=== PATIENT | male | born 2000 | race Caucasian/White ===

== ENCOUNTER 2025-07-29 07:59 | Emergency (ER) | payer BC ==
--- OUTSIDE RECORDS SUMMARY | 2025-07-29 08:04 | XMS REPORT | Continuity of Care Document ---
Author Name Unknown Address [address] [facility] [address] [place] [address] [facility] [place] Address [address] [facility] [address] [place] [address] Care Team Providers Care Churn Operator Margarine Name Role Phone PCP, PATIENT DOES NOT HAVE A Primary Care Physic rajendra Unavailable LUNA OLSEN Attending Clinician Unavailable Melchor Brito NP Attending Clinician [phone] SYLVIA BURTON Attending Clinician Unavailable RADIOLOGY Attending Clinician Unavailable Radiology Attending Clinician Unavailable MELCHOR BRITO Admitting Clinician Unavailable Payers Payer Name Policy Type Policy Number Effective Date Expirati on Date Source [facility] AETNA [facility] PIPELINE 9 [id number] 2025 00:00:00 Allergies, Adverse Reactions, Alerts Allergy Name Allergy Type Status Severity Reaction(s) Onset Date Inactive Date Treating Clinician Comments Source NO KNOWN ALLERGIE S Drug Class Active [facility] Social History Social Habit Start Date Stop Date Quantity Comments Source Sexual orientation U [facility] Sex assigned at 2001 00:00:00 2000 00:00:00 [facility] Smoking Status Start Date Stop Date Source Tobacco smoking consumption unknown [facility] Medications Ordered Medication Name Filled Medication Name Start Date Stop Date Current Medication? Ordering Clinician Indication Dosage Frequency Signature (SIG) Comments Components Source promethazin e-DM 6.25 mg-15 mg/5 mL oral syrup 5- 00:00: 00 Yes 5mg/5 mL Damaso Stephen Shane phentermine 15 mg capsule 2-15 00:00: 00 Yes 1mg Damaso Stephen Shane gabapentin 100 mg capsule 2023-10 00:00: 00 Yes 1mg Damaso F Shane Vital Signs Vital Name Observation Time Observation Value Comments S ource BP Systolic 2025-02-15 16:12:00 144 mm[Hg] Step hen F Shane BP Diastolic 2025-02-15 16:12:00 97 mm[Hg] Nicola phen F Shane Weight Measured 2025-02-15 16:12:00 194.00 pounds Damaso F Shane Height Measured 2025-02-15 16:12:00 67.80 inches Damaso F Shane Body Temperature 2025-02-15 16:12:00 99.50 degrees Damaso F Shane Heart Rate 2025-02-15 16:12:00 103.00 /min Step hen F Shane Respiratory Rate 2025-02-15 16:12:00 18.00 /min Damaso F Shane BP Diastolic 2024-11-29 10:03:00 83 mm[Hg] Nicola phen F Shane Weight Measured 2024-11-29 10:03:00 203.60 pounds Damaso F Shane Height Measured 2024-11-29 10:03:00 67.80 inches Damaso F Shane Body Temperature 2024-11-29 10:03:00 97.80 degrees Damaso F Shane Heart Rate 2024-11-29 10:03:00 77.00 /min Magda en F Shane Respiratory Rate 2024-11-29 10:03:00 18.00 /min Damaso F Shane BP Systolic 2024-11-29 10:03:00 152 mm[Hg] Step hen F Shane BP Systolic 2024-09-11 09:41:00 137 mm[Hg] Step hen F Shane BP Diastolic 2024-09-11 09:41:00 93 mm[Hg] Nicola phen F Shane Weight Measured 2024-09-11 09:41:00 205.20 pounds Damaso F Shane Height Measured 2024-09-11 09:41:00 67.80 inches Damaso F Shane Body Temperature 2024-09-11 09:41:00 97.90 degrees Damaso F Shane Heart Rate 2024-09-11 09:41:00 95.00 /min Magda en F Shane Respiratory Rate 2024-09-11 09:41:00 17.00 /min Damaso F Shane BP Systolic 2024-08-29 11:09:00 Step hen F Shane BP Diastolic 2024-08-29 11:09:00 Nicola phen F Shane Weight Measured 2024-08-29 11:09:00 Damaso F Shane Height Measured 2024-08-29 11:09:00 Damaso F Shane Body Temperature 2024-08-29 11:09:00 Damaso F Shane Heart Rate 2024-08-29 11:09:00 Magda en F Shane Respiratory Rate 2024-08-29 11:09:00 Damaso F Shane Respiratory Rate 2024-07-27 13:20:00 16.00 /min Damaso F Shane BP Systolic 2024-07-27 13:20:00 139 mm[Hg] Step hen F Shane BP Diastolic 2024-07-27 13:20:00 78 mm[Hg] Nicola phen F Shane Weight Measured 2024-07-27 13:20:00 206.40 pounds Damaso F Shane Height Measured 2024-07-27 13:20:00 67.80 inches Damaso F Shane Body Temperature 2024-07-27 13:20:00 98.00 degrees Damaso F Shane Heart Rate 2024-07-27 13:20:00 97.00 /min Magda en F Shane Procedures Procedure Date / Time Performed Performing Clinicia n Source XR CERVICAL SPINE 3 VW 2024-09-13 16:02:49 Melchor Brito [facility] Encounters Start Date/Time End Date/Time Encounter Type Admission Type Attending [facility] Care Department Encounter ID Source 2025-06-04 07:00:00 2025-06-04 07:00:00 Outpatient VIVIANA CABRALES [id number] [facility] 2025-05-28 00:00:00 2025-05-28 00:00:00 Outpatient LUNA OLSEN [id number] [facility] 2025-05-23 00:00:00 2025-05-23 00:00:00 Outpatient VIVIANA CABRALES [id number] [facility] 2025-05-23 00:00:00 2025-05-23 00:00:00 Outpatient VIVIANA CABRALES [id number] [facility] 2025-05-23 00:00:00 2025-05-23 00:00:00 Outpatient VIVIANA CABRALES [id number] [facility] 2025-05-23 00:00:00 2025-05-23 00:00:00 Outpatient VIVIANA CABRALES [id number] [facility] 2025-02-15 15:56:15 2025-02-15 15:56:15 Outpatient SFA [id number] [id number] Damaso Lynn 2025-02-15 00:00:00 2025-02-15 00:00:00 Outpatient Visit SFA [id number] Damaso Lynn 2024-11-29 10:04:20 2024-11-29 10:04:20 Outpatient SFA [facility] [id number] Damaso Lynn 2024-11-29 00:00:00 2024-11-29 00:00:00 Outpatient Visit SFA [id number] Damaso Lynn 2024-10-12 00:00:00 2024-10-12 09:46:14 Letter (Out) Melchor Brito [facility] [id number] [facility] 2024-10-02 08:30:00 2024-10-02 08:30:00 Outpatient R SYLVIA BURTON [facility] [id number] [facility] 2024-09-13 09:33:05 2024-09-13 23:59:00 Outpatient R RADIOLOGY [facility] [id number] [facility] 2024-09-13 09:30:00 2024-09-13 23:59:00 Hospital Encounter Radiology Radiology [facility] [id number] [facility] 2024-09-11 09:31:07 2024-09-11 09:31:07 Outpatient SFA SFA [id number] Damaso Lynn 2024-09-11 00:00:00 2024-09-11 00:00:00 Outpatient Visit [facility] [id number] Damaso Lynn 2024-08-29 11:08:56 2024-08-29 11:08:56 Outpatient [facility] [id number] Damaso Lynn 2024-08-29 00:00:00 2024-08-29 00:00:00 Outpatient Visit [facility] [id number] Damaso Lynn 2024-07-27 13:19:38 2024-07-27 13:19:38 Outpatient [facility] [id number] Damaso Lynn 2024-07-27 00:00:00 2024-07-27 00:00:00 Outpatient Visit [facility] [id number] Damaso Lynn Results Test Description Test Time Test Comments Results Result Co mments Source COMPREHENSIVE METABOLIC [id number] 04:56:27* Test Item Value Reference Range Interpretation Comme nts GLUCOSE (test code = 2217) 87 MG/DL 70-99 BUN (test code = 2208) 11 MG/DL 6-20 CREATININE (test code = 2214) 0.98 MG/DL 0.80-1.40 eGFR (2020 CKD-EPI) (test code = 00595) 111 ML/MIN/1.73 >60 CALC BUN/CREAT (test code = 2235) 11 RATIO 6-28 SODIUM (test code = 2231) 136 MEQ/L 133-146 POTASSIUM (test code = 2228) 4.7 MEQ/L 3.5-5.4 CHLORIDE (test code = 2215) 100 MEQ/L 95-107 CARBON DIOXIDE (test code = 2206) 22 MEQ/L 19-31 CALCIUM (test code = 2209) 10.0 MG/DL 8.5-10.5 PROTEIN, TOTAL (test code = 222) 7.3 G/DL 6.1-8.3 ALBUMIN (test code = 220) 5.0 G/DL 3.5-5.2 CALC GLOBULIN (test code = 0) 2.3 G/DL 1.9-3.7 CALC A/G RATIO (test code = 2233) 2.2 RATIO 1.0-2.6 BILIRUBIN, TOTAL (test code = 2206) 0.5 MG/DL <=1.2 ALKALINE PHOSPHATASE (test code = 2203) 90 U/L 40-121 AST (test code = 2217) 23 U/L 9-50 ALT (test code = 2218) 30 U/L 5-50 LIPID [id number] 04:56:27* Test Item Value Reference Range Interpretation Comme nts CHOLESTEROL (test code = 2209) 211 MG/DL <200 H TRIGLYCERIDES (test code = 2231) 149 MG/DL <150 HDL CHOLESTEROL (test code = 2219) 48 MG/DL >39 CALC LDL CHOL (test code = 2236) 135 MG/DL <100 H NOTE: CALCULATED LDL IS BASED ON BRIAN-WEAVER METHOD WHICHINCLUDES ADJUSTABLE TRIGLYCERIDE:VLDL CHOLESTEROL RATIO.THIS FACTOR VARIES BY MEASURED TRIGLYCERIDE AND NON-HDLCHOLESTEROL CONCENTRATIONS WITH INCREASED CALCULATED LDL SEENIN HIGHER TRIGLYCERIDE OR LOWER NON-HDL SPECIMENS. FOR MOREINFORMATION, SEE CLIENT ANNOUNCEMENT AT [email or web address] RISK RATIO LDL/HDL (test code = 2237) 2.81 RATIO <3.55 HEMOGLOBIN [id number] 02:56:37* Test Item Value Reference Range Interpretation Comme nts HEMOGLOBIN A1c (test code = 31591) 4.8 % 4.2-5.6 CBC W/AUTO DIFF WITH [id number] 02:52:19* Test Item Value Reference Range Interpretation Comme nts WBC (test code = 1001) 5.2 K/UL 3.5-11.0 RBC (test code = 1002) 5.36 M/UL 4.50-6.10 HEMOGLOBIN (test code = 1003) 16.3 G/DL 13.5-17.0 HEMATOCRIT (test code = 1004) 49.4 % 40.0-51.0 MCV (test code = 1005) 92.2 fL 80.0-99.0 MCH (test code = 1006) 30.4 PG 25.0-33.0 MCHC (test code = 1007) 33.0 G/DL 31.0-36.0 RDW (test code = 1038) 13.0 % 11.5-15.0 NEUTROPHILS (test code = 1008) 63.3 % LYMPHOCYTES (test code = 1010) 22.2 % MONOCYTES (test code = 1011) 12.9 % EOSINOPHILS (test code = 1012) 0.6 % BASOPHILS (test code = 1013) 0.8 % IMMATURE GRANULOCYTES (test code = 1036) 0.2 % NUCLEATED RBCS (test code = 1065) 0.0 /100 WBC'S See_Comment [Automated messa ge] The system which generated this result transmitted reference range: 0.0. The reference range was not used to interpret this result as normal/abnormal. PLATELET COUNT (test code = 1015) 287 K/UL 130-400 ABSOLUTE NEUTROPHILS (test code = 1066) 3.29 K/UL 1.50-7.50 ABSOLUTE LYMPHOCYTES (test code = 1067) 1.15 K/UL 1.00-4.00 ABSOLUTE MONOCYTES (test code = 1068) 0.67 K/UL 0.20-1.00 ABSOLUTE EOSINOPHILS (test code = 1040) 0.03 K/UL 0.00-0.50 ABSOLUTE BASOPHILS (test code = 1069) 0.04 K/UL 0.00-0.20 ABS IMMATURE GRANULOCYTES (test code = 1020) 0.01 K/UL 0.00-0.10 ABS NUCLEATED RBCS (test code = 98961) 0.00 K/UL 0.00-0.11 COMPREHENSIVE METABOLIC [id number] 00:00:00* Test Item Value Reference Range Interpretation Comme nts GLUCOSE (test code = 2217) 87 MG/DL BUN (test code = 2208) 11 MG/DL CREATININE (test code = 2214) 0.98 MG/DL eGFR (2020 CKD-EPI) (test code = 85625) 111 ML/MIN/1.73 CALC BUN/CREAT (test code = 2235) 11 RATIO SODIUM (test code = 2231) 136 MEQ/L POTASSIUM (test code = 2228) 4.7 MEQ/L CHLORIDE (test code = 2215) 100 MEQ/L CARBON DIOXIDE (test code = 2206) 22 MEQ/L CALCIUM (test code = 2209) 10.0 MG/DL PROTEIN, TOTAL (test code = 2229) 7.3 G/DL ALBUMIN (test code = 2201) 5.0 G/DL CALC GLOBULIN (test code = 2240) 2.3 G/DL CALC A/G RATIO (test code = 2234) 2.2 RATIO BILIRUBIN, TOTAL (test code = 2207) 0.5 MG/DL ALKALINE PHOSPHATASE (test code = 2204) 90 U/L AST (test code = 2218) 23 U/L ALT (test code = 2219) 30 U/L Damaso LynnHEMOGLOBIN [id number] 00:00:00* Test Item Value Reference Range Interpretation Comme nts HEMOGLOBIN A1c (test code = 10811) 4.8 % Damaso LynnCBC W/AUTO [id number] 00:00:00* Test Item Value Reference Range Interpretation Comme nts WBC (test code = 1001) 5.2 K/UL RBC (test code = 1002) 5.36 M/UL HEMOGLOBIN (test code = 1003) 16.3 G/DL HEMATOCRIT (test code = 1004) 49.4 % MCV (test code = 1005) 92.2 fL MCH (test code = 1006) 30.4 PG MCHC (test code = 1007) 33.0 G/DL RDW (test code = 1038) 13.0 % NEUTROPHILS (test code = 1008) 63.3 % LYMPHOCYTES (test code = 1010) 22.2 % MONOCYTES (test code = 1011) 12.9 % EOSINOPHILS (test code = 1012) 0.6 % BASOPHILS (test code = 1013) 0.8 % IMMATURE GRANULOCYTES (test code = 1036) 0.2 % NUCLEATED RBCS (test code = 1065) 0.0 /100WBC'S PLATELET COUNT (test code = 1015) 287 K/UL ABSOLUTE NEUTROPHILS (test c ode = 1066) 3.29 K/UL ABSOLUTE LYMPHOCYTES (test c ode = 1067) 1.15 K/UL ABSOLUTE MONOCYTES (test cod e = 1068) 0.67 K/UL ABSOLUTE EOSINOPHILS (test c ode = 1040) 0.03 K/UL ABSOLUTE BASOPHILS (test cod e = 1069) 0.04 K/UL ABS IMMATURE GRANULOCYTES (t est code = 1020) 0.01 K/UL ABS NUCLEATED RBCS (test cod e = 19056) 0.00 K/UL Damaso LynnLIPID [id number] 00:00:00* Test Item Value Reference Range Interpretation Comme nts CHOLESTEROL (test code = 2210) 211 MG/DL TRIGLYCERIDES (test code = 2232) 149 MG/DL HDL CHOLESTEROL (test code = 2220) 48 MG/DL CALC LDL CHOL (test code = 2237) 135 MG/DL RISK RATIO LDL/HDL (test cod e = 2238) 2.81 RATIO Damaso LynnTSH REFLEX TO FREE [id number] 00:00:00* Test Item Value Reference Range Interpretation Comme nts TSH REFLEX TO FREE T4 (test code = 2834) 0.969 UIU/ML Damaso LynnCOMPREHENSIVE METABOLIC [id number] 00:00:00* Test Item Value Reference Range Interpretation Comme nts GLUCOSE (test code = 2217) 87 MG/DL BUN (test code = 2208) 11 MG/DL CREATININE (test code = 2214) 0.98 MG/DL eGFR (2020 CKD-EPI) (test code = 79890) 111 ML/MIN/1.73 CALC BUN/CREAT (test code = 2235) 11 RATIO SODIUM (test code = 2231) 136 MEQ/L POTASSIUM (test code = 2228) 4.7 MEQ/L CHLORIDE (test code = 2215) 100 MEQ/L CARBON DIOXIDE (test code = 2206) 22 MEQ/L CALCIUM (test code = 2209) 10.0 MG/DL PROTEIN, TOTAL (test code = 2229) 7.3 G/DL ALBUMIN (test code = 2201) 5.0 G/DL CALC GLOBULIN (test code = 2240) 2.3 G/DL CALC A/G RATIO (test code = 2234) 2.2 RATIO BILIRUBIN, TOTAL (test code = 2207) 0.5 MG/DL ALKALINE PHOSPHATASE (test code = 2204) 90 U/L AST (test code = 2218) 23 U/L ALT (test code = 2219) 30 U/L Damaso LynnHEMOGLOBIN [id number] 00:00:00* Test Item Value Reference Range Interpretation Comme bertrand HEMOGLOBIN A1c (test code = 84148) 4.8 % Damaso LynnCBC W/AUTO [id number] 00:00:00* Test Item Value Reference Range Interpretation Comme nts WBC (test code = 1001) 5.2 K/UL RBC (test code = 1002) 5.36 M/UL HEMOGLOBIN (test code = 1003) 16.3 G/DL HEMATOCRIT (test code = 1004) 49.4 % MCV (test code = 1005) 92.2 fL MCH (test code = 1006) 30.4 PG MCHC (test code = 1007) 33.0 G/DL RDW (test code = 1038) 13.0 % NEUTROPHILS (test code = 1008) 63.3 % LYMPHOCYTES (test code = 1010) 22.2 % MONOCYTES (test code = 1011) 12.9 % EOSINOPHILS (test code = 1012) 0.6 % BASOPHILS (test code = 1013) 0.8 % IMMATURE GRANULOCYTES (test code = 1036) 0.2 % NUCLEATED RBCS (test code = 1065) 0.0 /100WBC'S PLATELET COUNT (test code = 1015) 287 K/UL ABSOLUTE NEUTROPHILS (test c ode = 1066) 3.29 K/UL ABSOLUTE LYMPHOCYTES (test c ode = 1067) 1.15 K/UL ABSOLUTE MONOCYTES (test cod e = 1068) 0.67 K/UL ABSOLUTE EOSINOPHILS (test c ode = 1040) 0.03 K/UL ABSOLUTE BASOPHILS (test cod e = 1069) 0.04 K/UL ABS IMMATURE GRANULOCYTES (t est code = 1020) 0.01 K/UL ABS NUCLEATED RBCS (test cod e = 52951) 0.00 K/UL Damaso LynnLIPID [id number] 00:00:00* Test Item Value Reference Range Interpretation Comme nts CHOLESTEROL (test code = 2210) 211 MG/DL TRIGLYCERIDES (test code = 2232) 149 MG/DL HDL CHOLESTEROL (test code = 2220) 48 MG/DL CALC LDL CHOL (test code = 2237) 135 MG/DL RISK RATIO LDL/HDL (test cod e = 2238) 2.81 RATIO Damaso LynnTSH REFLEX TO FREE [id number] 00:00:00* Test Item Value Reference Range Interpretation Comme nts TSH REFLEX TO FREE T4 (test code = 2834) 0.969 UIU/ML Damaso LynnXR CERVICAL SPINE 3 [id number] 16:12:33HISTORY: Pain in the right arm. FINDINGS: AP, lateral and 2 odontoid views of the cervical spine are obtained which showed no acute fracture or dislocation. Reversal of thenormal lordotic curvature atmidcervical level is suggestive of neck musclespasm. Slightly small size C4-C5 disc space could be a developmental variation. Nosignificant degenerative changes of the vertebral margins or uncovertebr aljoints and facet disease detected. No cervical rib. CONCLUSIONS: No acute fracture or dislocation. Probable [facility] spasm[facility] [id number] 00:00:00* Test Item Value Reference Range Interpretation Comme nts HIV 1/2 4TH GEN, RFLX CONF ( test code = 3514) NON-REACTIVE Damaso LynnCOMPREHENSIVE METABOLIC PANEL [ADDED]2024-07-28 00:00:00* Test Item Value Reference Range Interpretation Comme nts GLUCOSE (test code = 2217) 87 MG/DL BUN (test code = 2208) 11 MG/DL CREATININE (test code = 2214) 0.95 MG/DL eGFR (2020 CKD-EPI) (test code = 64445) 116 ML/MIN/1.73 CALC BUN/CREAT (test code = 2235) 12 RATIO SODIUM (test code = 2231) 139 MEQ/L POTASSIUM (test code = 2228) 4.2 MEQ/L CHLORIDE (test code = 2215) 99 MEQ/L CARBON DIOXIDE (test code = 2206) 23 MEQ/L CALCIUM (test code = 2209) 10.5 MG/DL PROTEIN, TOTAL (test code = 2229) 7.9 G/DL ALBUMIN (test code = 2201) 5.0 G/DL CALC GLOBULIN (test code = 2240) 2.9 G/DL CALC A/G RATIO (test code = 2234) 1.7 RATIO BILIRUBIN, TOTAL (test code = 2207) 0.4 MG/DL ALKALINE PHOSPHATASE (test code = 2204) 102 U/L AST (test code = 2218) 41 U/L ALT (test code = 2219) 65 U/L Damaso LynnLIPID PANEL [ADDED]2024-07-28 00:00:00* Test Item Value Reference Range Interpretation Comme nts CHOLESTEROL (test code = 2210) 235 MG/DL TRIGLYCERIDES (test code = 2232) 402 MG/DL HDL CHOLESTEROL (test code = 2220) 42 MG/DL CALC LDL CHOL (test code = 2237) (NOTE) MG/DL RISK RATIO LDL/HDL (test cod e = 2238) (NOTE) RATIO Damaso LynnHEMOGLOBIN A1c [ADDED]2024-07-28 00:00:00* Test Item Value Reference Range Interpretation Comme nts HEMOGLOBIN A1c (test code = 85315) 5.0 % Damaso LynnHEPATITIS PANEL, DIAGNOSTIC [ADDED]2024-07-28 00:00:00* Test Item Value Reference Range Interpretation Comme nts HEPATITIS A TOTAL AB (test c ode = 2725) REACTIVE HEPATITIS B SURF AG (test co de = 2739) NON-REACTIVE HEP B CORE TOTAL AB (test co de = 2729) NON-REACTIVE HEPATITIS B SURFACE AB (test code = 2737) EQUIVOCAL HEPATITIS C ANTIBODY (test c ode = 46) NON-REACTIVE INTERPRETATION HEPATITIS A: (test code = 2552) (NOTE) INTERPRETATION HEPATITIS B: (test code = 54486) (NOTE) INTERPRETATION HEPATITIS C: (test code = 93524) (NOTE) Damaso LynnRPR [ADDED]2024-07-28 00:00:00* Test Item Value Reference Range Interpretation Comme nts RPR RESULT (test code = 3501) NON-REACTIVE RPR TITER (test code = 3500) NOT INDIC. TITER Damaso LynnCT/NG, NAAT, URINE [ADDED]2024-07-28 00:00:00* Test Item Value Reference Range Interpretation Comme nts CHLAMYDIA, NAAT, URINE (test code = 42900) NEGATIVE GONORRHEA, NAAT, URINE (test code = 24443) NEGATIVE Damaso LynnHEPATITIS A IgM [REFLEX]2024-07-28 00:00:00* Test Item Value Reference Range Interpretation Comme bertrand HEPATITIS A IgM (test code = 2728) NON-REACTIVE Damaso LynnHIV 1/2 4TH GEN, RFLX [id number] 00:00:00* Test Item Value Reference Range Interpretation Comme nts HIV 1/2 4TH GEN, RFLX CONF ( test code = 3514) NON-REACTIVE Damaso LynnCOMPREHENSIVE METABOLIC PANEL [ADDED]2024-07-28 00:00:00* Test Item Value Reference Range Interpretation Comme nts GLUCOSE (test code = 2217) 87 MG/DL BUN (test code = 2208) 11 MG/DL CREATININE (test code = 2214) 0.95 MG/DL eGFR (2020 CKD-EPI) (test code = 07080) 116 ML/MIN/1.73 CALC BUN/CREAT (test code = 2235) 12 RATIO SODIUM (test code = 2231) 139 MEQ/L POTASSIUM (test code = 2228) 4.2 MEQ/L CHLORIDE (test code = 2215) 99 MEQ/L CARBON DIOXIDE (test code = 2206) 23 MEQ/L CALCIUM (test code = 2209) 10.5 MG/DL PROTEIN, TOTAL (test code = 2229) 7.9 G/DL ALBUMIN (test code = 2201) 5.0 G/DL CALC GLOBULIN (test code = 2240) 2.9 G/DL CALC A/G RATIO (test code = 2234) 1.7 RATIO BILIRUBIN, TOTAL (test code = 2207) 0.4 MG/DL ALKALINE PHOSPHATASE (test code = 2204) 102 U/L AST (test code = 2218) 41 U/L ALT (test code = 2219) 65 U/L Damaso LynnLIPID PANEL [ADDED]2024-07-28 00:00:00* Test Item Value Reference Range Interpretation Comme nts CHOLESTEROL (test code = 2210) 235 MG/DL TRIGLYCERIDES (test code = 2232) 402 MG/DL HDL CHOLESTEROL (test code = 2220) 42 MG/DL CALC LDL CHOL (test code = 2237) (NOTE) MG/DL RISK RATIO LDL/HDL (test cod e = 2238) (NOTE) RATIO Damaso LynnHEMOGLOBIN A1c [ADDED]2024-07-28 00:00:00* Test Item Value Reference Range Interpretation Comme nts HEMOGLOBIN A1c (test code = 49618) 5.0 % Damaso LynnHEPATITIS PANEL, DIAGNOSTIC [ADDED]2024-07-28 00:00:00* Test Item Value Reference Range Interpretation Comme nts HEPATITIS A TOTAL AB (test c ode = 2725) REACTIVE HEPATITIS B SURF AG (test co de = 9279) NON-REACTIVE HEP B CORE TOTAL AB (test co de = 2729) NON-REACTIVE HEPATITIS B SURFACE AB (test code = 2737) EQUIVOCAL HEPATITIS C ANTIBODY (test c ode = 4675) NON-REACTIVE INTERPRETATION HEPATITIS A: (test code = 2552) (NOTE) INTERPRETATION HEPATITIS B: (test code = 12972) (NOTE) INTERPRETATION HEPATITIS C: (test code = 98007) (NOTE) Damaso LynnRPR [ADDED]2024-07-28 00:00:00* Test Item Value Reference Range Interpretation Comme nts RPR RESULT (test code = 3501) NON-REACTIVE RPR TITER (test code = 3500) NOT INDIC. TITER Damaso LynnCT/NG, NAAT, URINE [ADDED]2024-07-28 00:00:00* Test Item Value Reference Range Interpretation Comme bertrand CHLAMYDIA, NAAT, URINE (test code = 37592) NEGATIVE GONORRHEA, NAAT, URINE (test code = 85216) NEGATIVE Damaso LynnHEPATITIS A IgM [REFLEX]2024-07-28 00:00:00* Test Item Value Reference Range Interpretation Comme bertrand HEPATITIS A IgM (test code = 2728) NON-REACTIVE Damaso LynnHIV 1/2 4TH GEN, RFLX [id number] 00:00:00* Test Item Value Reference Range Interpretation Comme nts HIV 1/2 4TH GEN, RFLX CONF ( test code = 3514) NON-REACTIVE Damaso LynnCOMPREHENSIVE METABOLIC PANEL [ADDED]2024-07-28 00:00:00* Test Item Value Reference Range Interpretation Comme nts GLUCOSE (test code = 2217) 87 MG/DL BUN (test code = 2208) 11 MG/DL CREATININE (test code = 2214) 0.95 MG/DL eGFR (2020 CKD-EPI) (test code = 03608) 116 ML/MIN/1.73 CALC BUN/CREAT (test code = 2235) 12 RATIO SODIUM (test code = 2231) 139 MEQ/L POTASSIUM (test code = 2228) 4.2 MEQ/L CHLORIDE (test code = 2215) 99 MEQ/L CARBON DIOXIDE (test code = 2206) 23 MEQ/L CALCIUM (test code = 2209) 10.5 MG/DL PROTEIN, TOTAL (test code = 2229) 7.9 G/DL ALBUMIN (test code = 2201) 5.0 G/DL CALC GLOBULIN (test code = 2240) 2.9 G/DL CALC A/G RATIO (test code = 2234) 1.7 RATIO BILIRUBIN, TOTAL (test code = 2207) 0.4 MG/DL ALKALINE PHOSPHATASE (test code = 2204) 102 U/L AST (test code = 2218) 41 U/L ALT (test code = 2219) 65 U/L Damaso Mitchell ShaneLIPID PANEL [ADDED]2024-07-28 00:00:00* Test Item Value Reference Range Interpretation Comme nts CHOLESTEROL (test code = 2210) 235 MG/DL TRIGLYCERIDES (test code = 2232) 402 MG/DL HDL CHOLESTEROL (test code = 2220) 42 MG/DL CALC LDL CHOL (test code = 2237) (NOTE) MG/DL RISK RATIO LDL/HDL (test cod e = 2238) (NOTE) RATIO Damaso Mitchell ShaneHEMOGLOBIN A1c [ADDED]2024-07-28 00:00:00* Test Item Value Reference Range Interpretation Comme nts HEMOGLOBIN A1c (test code = 84692) 5.0 % Damaso Stephen ShaneHEPATITIS PANEL, DIAGNOSTIC [ADDED]2024-07-28 00:00:00* Test Item Value Reference Range Interpretation Comme nts HEPATITIS A TOTAL AB (test c ode = 2725) REACTIVE HEPATITIS B SURF AG (test co de = 2739) NON-REACTIVE HEP B CORE TOTAL AB (test co de = 2729) NON-REACTIVE HEPATITIS B SURFACE AB (test code = 2737) EQUIVOCAL HEPATITIS C ANTIBODY (test c ode = 4675) NON-REACTIVE INTERPRETATION HEPATITIS A: (test code = 2552) (NOTE) INTERPRETATION HEPATITIS B: (test code = 03404) (NOTE) INTERPRETATION HEPATITIS C: (test code = 70512) (NOTE) Damaso Mitchell ShaneRPR [ADDED]2024-07-28 00:00:00* Test Item Value Reference Range Interpretation Comme nts RPR RESULT (test code = 3501) NON-REACTIVE RPR TITER (test code = 3500) NOT INDIC. TITER Damaso Mitchell ShaneCT/NG, NAAT, URINE [ADDED]2024-07-28 00:00:00* Test Item Value Reference Range Interpretation Comme nts CHLAMYDIA, NAAT, URINE (test code = 54627) NEGATIVE GONORRHEA, NAAT, URINE (test code = 74691) NEGATIVE Damaso F AustinHEPATITIS A IgM [REFLEX]2024-07-28 00:00:00* Test Item Value Reference Range Interpretation Comme nts HEPATITIS A IgM (test code = 2728) NON-REACTIVE Damaso LynnHIV 1/2 4TH GEN, RFLX [id number] 00:00:00* Test Item Value Reference Range Interpretation Comme nts HIV 1/2 4TH GEN, RFLX CONF ( test code = 3514) NON-REACTIVE Damaso LynnCOMPREHENSIVE METABOLIC PANEL [ADDED]2024-07-28 00:00:00* Test Item Value Reference Range Interpretation Comme nts GLUCOSE (test code = 2217) 87 MG/DL BUN (test code = 2208) 11 MG/DL CREATININE (test code = 2214) 0.95 MG/DL eGFR (2020 CKD-EPI) (test code = 54379) 116 ML/MIN/1.73 CALC BUN/CREAT (test code = 2235) 12 RATIO SODIUM (test code = 2231) 139 MEQ/L POTASSIUM (test code = 2228) 4.2 MEQ/L CHLORIDE (test code = 2215) 99 MEQ/L CARBON DIOXIDE (test code = 2206) 23 MEQ/L CALCIUM (test code = 2209) 10.5 MG/DL PROTEIN, TOTAL (test code = 2229) 7.9 G/DL ALBUMIN (test code = 2201) 5.0 G/DL CALC GLOBULIN (test code = 2240) 2.9 G/DL CALC A/G RATIO (test code = 2234) 1.7 RATIO BILIRUBIN, TOTAL (test code = 2207) 0.4 MG/DL ALKALINE PHOSPHATASE (test code = 2204) 102 U/L AST (test code = 2218) 41 U/L ALT (test code = 2219) 65 U/L Damaso Mitchell AustinLIPID PANEL [ADDED]2024-07-28 00:00:00* Test Item Value Reference Range Interpretation Comme nts CHOLESTEROL (test code = 2210) 235 MG/DL TRIGLYCERIDES (test code = 2232) 402 MG/DL HDL CHOLESTEROL (test code = 2220) 42 MG/DL CALC LDL CHOL (test code = 2237) (NOTE) MG/DL RISK RATIO LDL/HDL (test cod e = 2238) (NOTE) RATIO Damaso LynnHEMOGLOBIN A1c [ADDED]2024-07-28 00:00:00* Test Item Value Reference Range Interpretation Comme nts HEMOGLOBIN A1c (test code = 47601) 5.0 % Damaso Mitchell JuanPATITIS PANEL, DIAGNOSTIC [ADDED]2024-07-28 00:00:00* Test Item Value Reference Range Interpretation Comme nts HEPATITIS A TOTAL AB (test c ode = 2725) REACTIVE HEPATITIS B SURF AG (test co de = 2739) NON-REACTIVE HEP B CORE TOTAL AB (test co de = 2729) NON-REACTIVE HEPATITIS B SURFACE AB (test code = 2737) EQUIVOCAL HEPATITIS C ANTIBODY (test c ode = 4675) NON-REACTIVE INTERPRETATION HEPATITIS A: (test code = 2552) (NOTE) INTERPRETATION HEPATITIS B: (test code = 91685) (NOTE) INTERPRETATION HEPATITIS C: (test code = 44973) (NOTE) Damaso Mitchell ShaneRPR [ADDED]2024-07-28 00:00:00* Test Item Value Reference Range Interpretation Comme nts RPR RESULT (test code = 3501) NON-REACTIVE RPR TITER (test code = 3500) NOT INDIC. TITER Damaso Mitchell ShaneCT/NG, NAAT, URINE [ADDED]2024-07-28 00:00:00* Test Item Value Reference Range Interpretation Comme nts CHLAMYDIA, NAAT, URINE (test code = 95970) NEGATIVE GONORRHEA, NAAT, URINE (test code = 42780) NEGATIVE Damaso Mitchell JuanPATITIS A IgM [REFLEX]2024-07-28 00:00:00* Test Item Value Reference Range Interpretation Comme nts HEPATITIS A IgM (test code = 2728) NON-REACTIVE Damaso Martinez Date/Time Note [facility]2025-02-12 00:00:00 Damaso Dinh [facility]2024-11-25 00:00:00 Damaso Dinh [facility]2024-11-12 00:00:00 [facility]2024-10-10 00:00:00 [facility]
[2025-07-29] MEDS ORDERED: DIAZEPAM 5 MG TABLET ONE (08:22)
[2025-07-29] MEDS ORDERED: HYDROCODONE/APAP 5/325 MG TAB ONE (08:22)
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
== END 2025-07-29 09:44 | disposition home or self-care (01) ==
LOC: ER 07:59
DX: S32.010A Wedge compression fracture of first lumbar vertebra, initial encounter for closed fracture (principal); R91.1 Solitary pulmonary nodule; V57.5XXA Driver of pick-up truck or van injured in collision with fixed or stationary object in traffic accident, initial encounter
CPT/HCPCS: 71250; 74176; 99283